=== PATIENT | male | born 1960 | race Two or more races ===

== ENCOUNTER 2016-05-06 19:29 | Inpatient (IN) | payer BC ==
[~2016-05-06] VITALS: Ht 167.6 cm; Wt 120.8 kg
[~2016-05-06 19:29] MED LIST: ATORVASTATIN 40 MG T; ATORVASTATIN CA80 MG PO; Aspirin PO; BENICAR HCT 201 EACH; BENICAR HCT 401 EACH PO; BENICAR5 MG PO; Benicar PO; Colace PO; GLUCOPHAGE XR,500 MG PO; GLUCOVANCE 21 TABLET PO; GLYBURIDE PO; GLYBURIDE-METF1 EAC1; GLYBURIDE-METF1 EAC1 PO; HYDROXYZINE HCL10 MG PO; LIPITOR80 MG PO; LITE COAT ASPI325 M1 PO; LOPRESSOR25 MG; MELOXICAM15 MG PO; METAXALONE800 MG PO; METOPROLOL TART25 MG PO; Neurontin PO; PERCOCET 5/31 TABLET PO; PLAVIX75 MG PO; PROTONIX40 MG PO; Plavix PO; Protonix PO; TYLENOL REGULA325 MG PO; VICTOZA 2-0.6 MG/0.1 SC; VITAMIN D31000 UNI2 PO
[2016-05-06 20:51] LABS: HEMATOCRIT 40.3 % (38.0-50.0); MCHC 34.5 G/DL (30.0-36.0); MEAN PLAT.VOLUME 9.4 uM^3 (9.0-12.4); PLATELET COUNT 315 K/uL (156-360); RBC DIS.WIDTH-SD 41.7 % (39-53); RED BLOOD COUNT 4.48 M/uL (4.00-5.50); WHITE BLOOD COUNT 9.8 K/uL (4.1-10.2)
[2016-05-06 21:02] LABS: CHLORIDE 104 mEq/L (99-109); POTASSIUM 3.9 mEq/L (3.7-5.4); SODIUM 135 mEq/L (136-147)
[2016-05-06 21:04] LABS: GLUCOSE 310 mg/dL (70-99)
[2016-05-06 21:06] LABS: ANION GAP 12 MEQ/L (2-14)
[2016-05-06 21:08] LABS: GFR ESTIMATE (CALCULATED) 56 mL/min/
[2016-05-06 21:09] LABS: UREA NITROGEN (BUN) 24 mg/dL (9-23)
[2016-05-06 21:12] LABS: TROP-I INTERPRETATION NEGATIVE; TROPONIN-I < 0.01 ng/mL (0.0-0.30)
[2016-05-06] MEDS ORDERED: TIZANIDINE HCL2 MG PO (22:52)
[2016-05-06] MEDS ORDERED: ERGOCALCIF50000 UNIT PO (22:52)
[2016-05-06] MEDS ORDERED: NITROSTAT0.4 MG SL (22:52)
[2016-05-07 01:41] LABS: POINT-OF-CARE METER ID UU14174216
[2016-05-07] MEDS ORDERED: JANUVIA100 MG PO (01:47)
[2016-05-07 02:00] VITALS: BP 158/80
[2016-05-07 04:59] LABS: BASOPHIL COUNT 0.1 K/uL (0-0.1); EOSINOPHIL (%) 2.6 % (0-5); EOSINOPHIL COUNT 0.2 K/uL (0-0.3); HEMATOCRIT 38.4 % (38.0-50.0); IMMATURE GRANULOCYTE (%) 0.3 % (0.0-0.7); IMMATURE GRANULOCYTE COUNT 0.3 K/uL; LYMPHOCYTE COUNT 1.8 K/uL (1.0-2.8); MCH 31.4 PG (29.0-34.0); MCHC 34.6 G/DL (30.0-36.0); MCV 90.8 FL (86-99); MONOCYTE (%) 9.3 % (3-12); MONOCYTE COUNT 0.9 K/uL (0-0.8); NEUTROPHIL COUNT 6.4 K/uL (1.8-6.4); PLATELET COUNT 302 K/uL (156-360); RBC DIS.WIDTH-CV 12.9 % (11.8-14.6); RBC DIS.WIDTH-SD 41.5 % (39-53); RED BLOOD COUNT 4.23 M/uL (4.00-5.50); WHITE BLOOD COUNT 9.4 K/uL (4.1-10.2)
[2016-05-07 05:05] VITALS: BP 148/68
[2016-05-07 05:08] LABS: CHLORIDE 104 mEq/L (99-109); POTASSIUM 3.9 mEq/L (3.7-5.4); SODIUM 134 mEq/L (136-147)
[2016-05-07 05:10] LABS: GLUCOSE 282 mg/dL (70-99)
[2016-05-07 05:12] LABS: ANION GAP 10 MEQ/L (2-14); TOTAL BILIRUBIN 0.5 mg/dL (0.0-1.0)
[2016-05-07 05:14] LABS: ALKALINE PHOSPHATASE 78 IU/L (3-129); GFR ESTIMATE (CALCULATED) > 59 mL/min/
[2016-05-07 05:15] LABS: UREA NITROGEN (BUN) 21 mg/dL (9-23)
[2016-05-07 05:18] LABS: TROP-I INTERPRETATION NEGATIVE; TROPONIN-I < 0.01 ng/mL (0.0-0.30)
[2016-05-07 08:00] VITALS: BP 143/71
[2016-05-07 11:42] VITALS: BP 146/78
[2016-05-07 13:16] LABS: TROP-I INTERPRETATION NEGATIVE; TROPONIN-I 0.02 ng/mL (0.0-0.30)
[2016-05-07 15:13] VITALS: BP 155/93
[2016-05-07 19:52] LABS: TROP-I INTERPRETATION NEGATIVE; TROPONIN-I < 0.01 ng/mL (0.0-0.30)
== END 2016-05-07 19:56 | disposition home or self-care (01) | DRG 313 ==
LOC: EME 19:29 → EDOF 05-07 00:02 → 4EAST 05-07 00:02
PROVIDERS: Internal Medicine
DX: R07.89 Other chest pain (principal); J98.11 Atelectasis; Z68.41 Body mass index [BMI] 40.0-44.9, adult; I25.10 Atherosclerotic heart disease of native coronary artery without angina pectoris; K21.9 Gastro-esophageal reflux disease without esophagitis; E11.9 Type 2 diabetes mellitus without complications; E78.5 Hyperlipidemia, unspecified; I10 Essential (primary) hypertension; M25.512 Pain in left shoulder; E66.9 Obesity, unspecified; I51.7 Cardiomegaly; M19.90 Unspecified osteoarthritis, unspecified site; M46.96 Unspecified inflammatory spondylopathy, lumbar region; M48.04 Spinal stenosis, thoracic region; N28.9 Disorder of kidney and ureter, unspecified; E86.0 Dehydration; Z98.61 Coronary angioplasty status; Z79.82 Long term (current) use of aspirin; Z79.84 Long term (current) use of oral hypoglycemic drugs; Z79.02 Long term (current) use of antithrombotics/antiplatelets; Z83.3 Family history of diabetes mellitus; Z82.49 Family history of ischemic heart disease and other diseases of the circulatory system
CPT/HCPCS: 71020; 80048; 80053; 82948; 84484; 85025; 85027; 93005; 99281; 99285; J1815; J2270; J7030

== ENCOUNTER 2016-07-30 05:32 | Emergency (ER) | payer BC ==
[~2016-07-30] VITALS: Ht 154.9 cm; Wt 117.0 kg
[~2016-07-30 05:32] MED LIST changes: +ERGOCALCIF50000 UNIT PO; +JANUVIA100 MG PO; +NITROSTAT0.4 MG SL; +TIZANIDINE HCL2 MG PO
[2016-07-30 06:25] LABS: HEMATOCRIT 40.5 % (38.0-50.0); MCH 30.2 PG (29.0-34.0); MCHC 33.1 G/DL (30.0-36.0); MCV 91.2 FL (86-99); MEAN PLAT.VOLUME 9.2 uM^3 (9.0-12.4); PLATELET COUNT 347 K/uL (156-360); RBC DIS.WIDTH-CV 12.5 % (11.8-14.6); RBC DIS.WIDTH-SD 41.4 % (39-53); RED BLOOD COUNT 4.44 M/uL (4.00-5.50); WHITE BLOOD COUNT 9.1 K/uL (4.1-10.2)
[2016-07-30 06:39] LABS: CHLORIDE 104 mEq/L (99-109); POTASSIUM 4.2 mEq/L (3.7-5.4); SODIUM 137 mEq/L (136-147)
[2016-07-30 06:41] LABS: GLUCOSE 326 mg/dL (70-99)
[2016-07-30 06:42] LABS: ANION GAP 11 MEQ/L (2-14)
[2016-07-30 06:45] LABS: GFR ESTIMATE (CALCULATED) > 59 mL/min/
[2016-07-30 06:46] LABS: UREA NITROGEN (BUN) 21 mg/dL (9-23)
[2016-07-30 06:49] LABS: TROP-I INTERPRETATION NEGATIVE; TROPONIN-I < 0.01 ng/mL (0.0-0.30)
[2016-07-30 07:56] VITALS: BP 143/88
== END 2016-07-30 08:03 | disposition home or self-care (01) ==
LOC: EME 05:32
PROVIDERS: Emergency Medicine
DX: M54.16 Radiculopathy, lumbar region (principal); R10.9 Unspecified abdominal pain; M79.605 Pain in left leg; R06.02 Shortness of breath; I10 Essential (primary) hypertension; E78.5 Hyperlipidemia, unspecified; E11.9 Type 2 diabetes mellitus without complications; Z79.02 Long term (current) use of antithrombotics/antiplatelets; Z79.82 Long term (current) use of aspirin; Z95.5 Presence of coronary angioplasty implant and graft
CPT/HCPCS: 71020; 80048; 84484; 85027; 93005; 99281; 99285; J2060

== ENCOUNTER 2017-12-15 17:49 | Emergency (ER) | payer BC ==
[~2017-12-15] VITALS: Ht 167.6 cm; Wt 117.7 kg
[2017-12-15 18:42] LABS: HEMATOCRIT 40.7 % (38.0-50.0); HEMOGLOBIN 14.1 G/DL (12.5-16.6); MCH 31.5 PG (29.0-34.0); MCHC 34.6 G/DL (30.0-36.0); MCV 91.1 FL (86-99); PLATELET COUNT 327 K/uL (156-360); RBC DIS.WIDTH-CV 12.6 % (11.8-14.6); RBC DIS.WIDTH-SD 41.9 % (39-53); RED BLOOD COUNT 4.47 M/uL (4.00-5.50); WHITE BLOOD COUNT 8.2 K/uL (4.1-10.2)
[2017-12-15 18:54] LABS: ALBUMIN 4.1 g/dL (3.2-4.8); CHLORIDE 106 mEq/L (99-109); POTASSIUM 4.1 mEq/L (3.7-5.4); SODIUM 138 mEq/L (136-147)
[2017-12-15 18:56] LABS: GLUCOSE 257 mg/dL (70-99)
[2017-12-15 18:57] LABS: TOTAL PROTEIN 7.3 g/dL (6.4-8.3)
[2017-12-15 18:58] LABS: TOTAL BILIRUBIN 0.6 mg/dL (0.0-1.0)
[2017-12-15 19:00] LABS: ALKALINE PHOSPHATASE 66 IU/L (3-129); CREATININE 1.2 mg/dL (0.6-1.3); GFR ESTIMATE (CALCULATED) > 59 mL/min/ (58.99-99999)
[2017-12-15 19:01] LABS: UREA NITROGEN (BUN) 22 mg/dL (9-23)
[2017-12-15 19:02] LABS: AST (GOT) 25 IU/L (2-34)
[2017-12-15 19:03] LABS: ALT (GPT) 37 IU/L (3-49)
[2017-12-15 19:34] LABS: APPEARANCE SL.HAZY ((CLEAR)); BILIRUBIN NEGATIVE; BLOOD LARGE; COLOR YELLOW ((YELLOW)); GLUCOSE (STRIP) >=500; KETONES NEGATIVE; LEUKOCYTES NEGATIVE; NITRITE NEGATIVE; PROTEIN (STRIP) 100; SPECIFIC GRAVITY 1.017 (1.000-1.030); UROBILINOGEN 0.2 MG/DL (0.2-1.0)
[2017-12-15 19:45] LABS: BACTERIA NONE SEEN /HPF; EPITHELIAL CELLS NONE SEEN /HPF; MUCUS TRACE /LPF; RED BLOOD CELLS TNTC /HPF (0-5); UCUL ADDED? YES
[2017-12-15] MEDS ORDERED: ZOFRAN ODT4 MG PO (20:22)
[2017-12-15] MEDS ORDERED: FLOMAX0.4 MG PO (20:22)
[2017-12-15] MEDS ORDERED: PERCOCET 5/31 TABLET PO (20:22)
[2017-12-15] MEDS ORDERED: CIPRO500 MG PO (20:23)
[2017-12-15 20:40] VITALS: BP 00/00
== END 2017-12-15 20:41 | disposition home or self-care (01) ==
LOC: EME 17:49
PROVIDERS: Physician Assistant
DX: N13.2 Hydronephrosis with renal and ureteral calculous obstruction (principal); N39.0 Urinary tract infection, site not specified; K76.0 Fatty (change of) liver, not elsewhere classified; K40.90 Unilateral inguinal hernia, without obstruction or gangrene, not specified as recurrent; K43.9 Ventral hernia without obstruction or gangrene; Z87.442 Personal history of urinary calculi; I10 Essential (primary) hypertension; E78.5 Hyperlipidemia, unspecified; E11.9 Type 2 diabetes mellitus without complications; Z79.84 Long term (current) use of oral hypoglycemic drugs; Z95.5 Presence of coronary angioplasty implant and graft; Z79.02 Long term (current) use of antithrombotics/antiplatelets; Z79.82 Long term (current) use of aspirin
CPT/HCPCS: 74176; 80053; 81003; 85027; 87086; 99281; 99284; J1885; J3010; J7030